=== PATIENT | female | born 1985 ===

== ENCOUNTER 2021-09-01 12:22 | Emergency (ER) | payer MEDICAID ==
[2021-09-01] MEDS ORDERED: Sodium Chloride 0.9% 10 ML Syringe FLUSH PRN ×2 (12:58→13:16)
[2021-09-01] MEDS ORDERED: Sodium Chloride 0.9% 1,000 ML IV SCH (13:00)
[2021-09-01] MEDS ORDERED: Acetaminophen 325 MG Tab PO ONE (13:05)
[2021-09-01] MEDS ORDERED: HYDROmorphone 0.5 MG/0.5 ML Syringe IVPUSH ONE (13:05)
[2021-09-01] MEDS ORDERED: Iopamidol 612 MG/ML 50 ML SDV IVPUSH ONE (13:16)
[2021-09-01] MEDS ORDERED: Iopamidol 612 MG/ML 100 ML Bottle IVPUSH ONE (13:16)
[2021-09-01 14:01] LABS: CORONAVIRUS COVID-19 NAA NEGATIVE (NEGATIVE)
[2021-09-01] MEDS ORDERED: Sodium Chloride 0.9% 500 ML IV SCH (14:45)
[2021-09-01] MEDS ORDERED: cefTRIAXone 2 GM in Sodium Chloride 0.9% 100 ML IV ONE (15:25)
[2021-09-01] MEDS ORDERED: HYDROmorphone 1 MG/ML Syringe IVPUSH ONE (16:32)
== END 2021-09-01 17:00 ==
LOC: JD.ED 12:22
DX: A41.9 Sepsis, unspecified organism (principal); I31.3 Pericardial effusion (noninflammatory); I82.90 Acute embolism and thrombosis of unspecified vein; D64.89 Other specified anemias; C78.01 Secondary malignant neoplasm of right lung; C78.7 Secondary malignant neoplasm of liver and intrahepatic bile duct; C76.3 Malignant neoplasm of pelvis; Z20.822 Contact with and (suspected) exposure to COVID-19
CPT/HCPCS: 0241U; 36415; 36430; 71260; 74177; 82607; 82746; 83540; 83605; 84466; 84703; 85025; 85610; 85730; 86140; 86850; 86900; 86901; 86922; 87040; 96365; 96375; 96376; 99285; A9270; J0696; J1170; J3490; J7030; P9016; Q9967